=== PATIENT | female | born 1955 | race American Indian/Alaskan Native ===

== ENCOUNTER 2018-09-02 14:39 | Emergency (ER) | payer MEDICAID ==
[~2018-09-02] VITALS: Ht 162.6 cm; Wt 82.5 kg
[~2018-09-02 14:39] MED LIST: ACYC800 PO; ALBU90I INH; ALBU90OI6 INH; ALBU90OI61 INH; CLEM1.34 PO; CODGUAEL PO; CYCL10 PO; ERYT.5TO OD; HYDACE5 PO; LEVFLO500 PO; NAPR500 PO; ONDA8ODT MM; OXYACE5T PO; PENVK500 PO; Zofran Odt4 MG SL
== END 2018-09-02 15:35 | disposition home or self-care (01) ==
LOC: ER 14:39
DX: T63.441A Toxic effect of venom of bees, accidental (unintentional), initial encounter (principal); Z79.899 Other long term (current) drug therapy; J45.909 Unspecified asthma, uncomplicated
CPT/HCPCS: 99283; Q0163

== ENCOUNTER 2019-01-29 14:10 | Emergency (ER) | payer OTHER ==
[~2019-01-29] VITALS: Ht 162.6 cm; Wt 83.0 kg
[2019-01-29 15:28] LABS: BASOPHILS ABSOLUTE AUTO 0.02 K/mm3 (0.00-0.23); BASOPHILS PERCENT AUTO 0 % (0-2); EOSINOPHILS ABSOLUTE AUTO 0.11 K/mm3 (0.00-0.68); EOSINOPHILS PERCENT AUTO 2 % (0-6); Hematocrit 39.8 % (33.0-51.0); Hemoglobin 12.8 g/dL (11.5-16.0); IMMATURE GRAN ABSOLUTE AUTO 0.01 K/mm3 (0.00-0.10); IMMATURE GRAN PERCENT AUTO 0 % (0-1); LYMPHOCYTES ABSOLUTE AUTO 1.73 K/mm3 (0.84-5.20); LYMPHOCYTES PERCENT AUTO 28 % (21-46); MONOCYTES ABSOLUTE AUTO 0.42 K/mm3 (0.16-1.47); MONOCYTES PERCENT AUTO 7 % (4-13); Mean Corpuscular HGB 29.1 pg (26.0-34.0); Mean Corpuscular HGB Conc 32.2 g/dL (31.5-36.5); Mean Corpuscular Volume 91 fL (80-100); Mean Platelet Volume 9.7 fL (9.1-12.4); NEUTROPHILS ABSOLUTE AUTO 3.87 K/mm3 (1.96-9.15); NEUTROPHILS PERCENT AUTO 63 % (41-73); Platelet Count 340 K/mm3 (150-400); White Blood Cell Count 6.16 K/mm3 (4.00-11.30)
[2019-01-29 15:59] LABS: Alanine Aminotransfer (ALT/SGP 25 U/L (12-78); Albumin, Blood 3.9 g/dL (3.4-5.0); Albumin/Globulin Ratio 1.1 (0.8-1.8); Alk Phos 114 U/L (50-136); Anion Gap 4 mmol/L (6-16); Aspartate Aminotrans (AST/SGOT 14 U/L (12-37); Bilirubin, Total 0.2 mg/dL (0.1-1.0); Blood Urea Nitrogen 23 mg/dL (8-24); Bun/Creatinine Ratio 25.7 (12.0-20.0); CO2, Blood 25 mmol/L (21-32); Calcium, Blood 8.9 mg/dL (8.5-10.1); Chloride, Blood 110 mmol/L (98-108); Globulin, Blood 3.4 g/dL (2.2-4.0); Glomerular Filtration Rate >60 (60-); Glucose, Blood 119 mg/dL (70-99); Potassium, Blood 4.1 mmol/L (3.5-5.5); Sodium, Blood 139 mmol/L (136-145); Total Protein, Blood 7.3 g/dL (6.4-8.2); Troponin I <0.015 ng/mL (0.000-0.040)
[2019-01-29] MEDS ORDERED: ALBU2.5V5 INH (19:03)
[2019-01-29] MEDS ORDERED: ALBU90OI INH (19:03)
== END 2019-01-29 19:11 | disposition home or self-care (01) ==
LOC: ER 14:10
PROVIDERS: Physician Assistant
DX: J45.909 Unspecified asthma, uncomplicated (principal); Z79.899 Other long term (current) drug therapy
CPT/HCPCS: 36415; 71046; 80053; 84484; 85025; 85379; 93005; 93010; 94640; 99284-25

== ENCOUNTER 2024-04-08 15:58 | Emergency (ER) | payer OTHER ==
[~2024-04-08] VITALS: Ht 162.6 cm; Wt 83.0 kg
[~2024-04-08 15:58] MED LIST changes: +ALBU2.5V5 INH; +ALBU90OI INH; +PRED20 PO
[2024-04-08 16:57] VITALS: BP 142/97
== END 2024-04-08 19:21 | disposition home or self-care (01) ==
LOC: ER 15:58
DX: S06.0X9A Concussion with loss of consciousness of unspecified duration, initial encounter (principal); W18.39XA Other fall on same level, initial encounter; J45.909 Unspecified asthma, uncomplicated; Z79.899 Other long term (current) drug therapy
CPT/HCPCS: 70450; 99284-25